=== PATIENT | male | born 1975 | race Caucasian/White ===

== ENCOUNTER → 2018-07-15 | Outpatient (CLI) | payer OTHER ==
--- NOTE | 2018-07-15 17:55 | Diagnostic Imaging Report ---
PROCEDURE: CT urinary tract, rule out kidney stone. TECHNIQUE: Multiple contiguous axial images were obtained through the abdomen and pelvis without the use of intravenous contrast. Auto Exposure Controls were utilized during the CT exam to meet ALARA standards for radiation dose reduction. INDICATION: Bilateral flank pain for four days. COMPARISON: No prior studies are available for comparison. FINDINGS: The lung bases are clear. Liver contains a tiny low-density in the inferior right lobe measuring 9 mm, too small to characterize. Gallbladder is contracted. No biliary duct dilatation is seen. The pancreas and spleen are unremarkable. No adrenal mass is identified. No definite renal calculi or hydronephrosis is seen. Aorta is non-aneurysmal. No central retroperitoneal or mesenteric lymphadenopathy is seen. Small and large bowel loops are nonobstructed. The appendix is visualized in the right lower quadrant and appears unremarkable. There is no ascites. Bladder is decompressed. There does appear to be a fat-containing left inguinal hernia. IMPRESSION: 1. No evidence of urinary tract calculi or obstruction. 2. No evidence of acute appendicitis. 3. No acute feature is detected. Dictated by: Dictated on workstation # [id number]
== END ==
LOC: RAD FS 16:08
PROVIDERS: ATTEND Family Medicine
DX: R10.9 Unspecified abdominal pain (principal)
CPT/HCPCS: 74176

== ENCOUNTER → 2018-07-30 | Outpatient (CLI) | payer OTHER ==
[~2018-07-30] MED LIST: CATHETER FLUSH 10 ML SYR IV PRN
--- NOTE | 2018-07-30 15:31 | Diagnostic Imaging Report ---
INDICATION: Abdominal pain and nausea. TECHNIQUE: Patient was administered 5.5 mCi technetium 99m Choletec intravenously and imaging over the abdomen was performed. At one hour, patient ingested one can of Ensure and gallbladder ejection fraction was calculated. FINDINGS: There is homogeneous uptake of activity by the liver. There is prompt excretion of activity into the gallbladder and common duct. Normal passage of activity into the small bowel is seen. Gallbladder ejection fraction is normal at 79%. IMPRESSION: Normal HIDA scan and gallbladder ejection fraction. Dictated by: Dictated on workstation # [id number]
== END ==
LOC: CARD 11:35
DX: R10.9 Unspecified abdominal pain (principal); R11.0 Nausea
CPT/HCPCS: 78227

== ENCOUNTER 2020-06-09 14:58 | Emergency (ER) | payer OTHER ==
[~2020-06-09] VITALS: Ht 177.8 cm; Wt 99.7 kg
[~2020-06-09 14:58] MED LIST changes: -CATHETER FLUSH 10 ML SYR IV PRN; +DEXTROSE 50% 50 ML (IMS) SYR ONE
[2020-06-09] MEDS ORDERED: ONDANSETRON 4 MG/2 ML (SDV) Z0FRAN ONE (15:17)
--- NOTE | 2020-06-09 15:18 | ED General ---
General Chief Complaint: General Problems/Pain Stated Complaint: AMS Nursing Triage Note: Patient and son report patient has been extremely fatigued, nauseous, and altered in mental status since this morning. Patient reports he remembers checking his blood sugar this morning and states it was 21. He states he called his son's school and had him sent home, son states he gave patient mountain dew to drink. Patient states he does not remember anything except checking his blood sugar today. Nursing Sepsis Screen: No Definite Risk Source of Information: Patient, EMS, Family History of Present Illness Date Seen by Provider: Jun 09, 2020 Time Seen by Provider: 15:05 Initial Comments Patient is a 79-qxbo-gre-year-old male with history of man-alhqzwz-rewurfakf diabetes who presents with altered mental status nausea fatigue and generalized weakness. Patient does not recall when symptoms began. He texted his family member who was at work at 11 AM stating that he did not feel well. Upon returning home, the family member found the patient to be confused and a blood sugar of 21. The patient had attempted to check his blood sugar multiple times by himself this morning unsuccessfully. He was given a nondiet fountain drink prior to EMS arrival. Blood sugars [address] Patient complains of mild headache, confusion, weakness and nausea. Not bite his tongue lip did not have incontinence. He denies chest pain palpitations, fever chills, and abdominal pain. He cannot recall when he last took his medications or had something to eat. History is limited due to the patient's altered mental state. Timing/Duration: 1/2 Hour Severity: Mild Modifying Factors: improves with Other Associated Systoms: Other Allergies and Home Medications Allergies Coded Allergies: No Known Drug Allergies (Unverified , 07/30/18) Patient Home Medication List Home Medication List Reviewed: Yes Review of Systems Review of Systems Constitutional: see HPI EENTM: see HPI Respiratory: see HPI Cardiovascular: see HPI Gastrointestinal: see HPI Genitourinary: see HPI Musculoskeletal: see HPI Skin: see HPI Psychiatric/Neurological: See HPI Hematologic/Lymphatic: See HPI Immunological/Allergic: see HPI All Other Systems Reviewed Negative Unless Noted: Yes Past Jofotsu-Kilpkr-Xphboh Hx Past Med/Social Hx: Reviewed Nursing Past Med/Soc Hx Patient Social History Recent Infectious Disease Expo: No Physical Exam Vital Signs Vital Signs - First Documented 06/09/20 15:07 Temp 37.5 Pulse 93 Resp 18 B/P (MAP) 121/66 (84) Pulse Ox 96 O2 Delivery Room Air Capillary Refill : Less Than 3 Seconds Height, Weight, BMI Height: '" Weight: lbs. oz. kg; 31.00 BMI Method: General Appearance: Other (Weak, confused appearing, no distress) Eyes: Bilateral Eye Normal Inspection, Bilateral Eye PERRL, Bilateral Eye EOMI HEENT: PERRL/EOMI, Normal ENT Inspection, Pharynx Normal Neck: Full Range of Motion, Non Tender, Supple Respiratory: Chest Non Tender, Lungs Clear, Normal Breath Sounds Cardiovascular: Regular Rate, Rhythm, No Edema, No Murmur Gastrointestinal: No Organomegaly, Non Tender, Soft Back: Normal Inspection Extremity: Normal Capillary Refill, Non Tender, No Calf Tenderness Neurologic/Psychiatric: Alert, No Motor/Sensory Deficits, Normal Mood/Affect, 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, Other (Oriented to person place) Skin: Cool, Pallor Focused Exam Sepsis Stage: Ruled Out Lactate Level 06/09/20 16:30: Lactic Acid Level 1.79 Lactic Acid Level Laboratory Tests Test 06/09/20 16:30 Lactic Acid Level 1.79 MMOL/L (0.50-2.00) Progress/Results/Core Measures Suspected Sepsis Recent Fever Within 48 Hours: No Infection Criteria Present: None New/Unexplained Altered Menta: Yes Sepsis Screen: No Definite Risk SIRS Temperature: Pulse: 93 Respiratory Rate: 18 Laboratory Tests 06/09/20 15:05: White Blood Count 10.7 Blood Pressure 121 /66 Mean: 84 06/09/20 16:30: Lactic Acid Level 1.79 Laboratory Tests 06/09/20 15:05: Creatinine 1.02, Platelet Count 217, Total Bilirubin 0.4 Results/Orders Lab Results Laboratory Tests Test 06/09/20 15:02 06/09/20 15:05 06/09/20 16:30 06/09/20 17:18 Range/Units Glucometer 211 H 191 H 70-110 MG/DL White Blood Count 10.7 4.3-11.0 10^3/uL Red Blood Count 5.28 4.35-5.85 10^6/uL Hemoglobin 16.6 13.3-17.7 G/DL Hematocrit 47 40-54 % Mean Corpuscular Volume 90 80-99 FL Mean Corpuscular Hemoglobin 31 25-34 PG Mean Corpuscular Hemoglobin Concent 35 32-36 G/DL Red Cell Distribution Width 13.7 10.0-14.5 % Platelet Count 217 130-400 10^3/uL Mean Platelet Volume 11.7 H 7.4-10.4 FL Immature Granulocyte % (Auto) 1 % Neutrophils (%) (Auto) 60 42-75 % Lymphocytes (%) (Auto) 28 12-44 % Monocytes (%) (Auto) 8 0-12 % Eosinophils (%) (Auto) 2 0-10 % Basophils (%) (Auto) 1 0-10 % Neutrophils # (Auto) 6.5 1.8-7.8 X 10^3 Lymphocytes # (Auto) 3.0 1.0-4.0 X 10^3 Monocytes # (Auto) 0.9 0.0-1.0 X 10^3 Eosinophils # (Auto) 0.2 0.0-0.3 10^3/uL Basophils # (Auto) 0.1 0.0-0.1 10^3/uL Immature Granulocyte # (Auto) 0.1 0.0-0.1 10^3/uL Sodium Level 138 135-145 MMOL/L Potassium Level 4.3 3.6-5.0 MMOL/L Chloride Level 103 98-107 MMOL/L Carbon Dioxide Level 23 21-32 MMOL/L Anion Gap 12 5-14 MMOL/L Blood Urea Nitrogen 15 7-18 MG/DL Creatinine 1.02 0.60-1.30 MG/DL Estimat Glomerular Filtration Rate > 60 BUN/Creatinine Ratio 15 Glucose Level 222 H 70-105 MG/DL Calcium Level 9.5 8.5-10.1 MG/DL Corrected Calcium 8.5-10.1 MG/DL Total Bilirubin 0.4 0.1-1.0 MG/DL Aspartate Amino Transf (AST/SGOT) 25 5-34 U/L Alanine Aminotransferase (ALT/SGPT) 41 0-55 U/L Alkaline Phosphatase 114 40-136 U/L Total Protein 7.2 6.4-8.2 GM/DL Albumin 4.6 H 3.2-4.5 GM/DL Serum Alcohol < 10 <10 MG/DL Urine Color YELLOW Urine Clarity CLEAR Urine pH 6.0 5-9 Urine Specific [place] 1.025 H 1.016-1.022 Urine Protein NEGATIVE NEGATIVE Urine Glucose (UA) 2+ H NEGATIVE Urine Ketones TRACE H NEGATIVE Urine Nitrite NEGATIVE NEGATIVE Urine Bilirubin NEGATIVE NEGATIVE Urine Urobilinogen 0.2 < = 1.0 MG/DL Urine Leukocyte Esterase NEGATIVE NEGATIVE Urine RBC (Auto) NEGATIVE NEGATIVE Urine RBC NONE /HPF Urine WBC RARE /HPF Urine Squamous Epithelial Cells 0-2 /HPF Urine Crystals NONE /LPF Urine Bacteria TRACE /HPF Urine Casts NONE /LPF Urine Mucus MODERATE H /LPF Urine Culture Indicated NO Lactic Acid Level 1.79 0.50-2.00 MMOL/L Urine Opiates Screen NEGATIVE NEGATIVE Urine Oxycodone Screen NEGATIVE NEGATIVE Urine Methadone Screen NEGATIVE NEGATIVE Urine Propoxyphene Screen NEGATIVE NEGATIVE Urine Barbiturates Screen NEGATIVE NEGATIVE Ur Tricyclic Antidepressants Screen NEGATIVE NEGATIVE Urine Phencyclidine Screen NEGATIVE NEGATIVE Urine Amphetamines Screen NEGATIVE NEGATIVE Urine Methamphetamines Screen NEGATIVE NEGATIVE Urine Benzodiazepines Screen POSITIVE H NEGATIVE Urine Cocaine Screen NEGATIVE NEGATIVE Urine Cannabinoids Screen NEGATIVE NEGATIVE My Orders Orders - MILAN KAY DO Cbc With Automated Diff (06/09/20 15:12) Comprehensive Metabolic Panel (06/09/20 15:12) Ekg-Prn For Chest Pain Or Rhyt (06/09/20 15:12) Chest 1 View Ap/Pa Only (06/09/20 15:12) Urinalysis (06/09/20 15:12) Drug Screen Stat (Urine) (06/09/20 15:12) Alcohol (06/09/20 15:12) Lactic Acid Analyzer (06/09/20 15:12) Ct Head Wo (06/09/20 15:12) Fsbs 50-69mg/Dl (06/09/20 15:12) Ondansetron Injection (Zofran Injectio (06/09/20 15:17) Ondansetron Injection (Zofran Injectio (06/09/20 15:30) Medications Given in ED Current Medications Medications Dose Ordered Sig/Kylah Route Start Time Stop Time Status Last Admin Dose Admin Ondansetron HCl 4 mg ONCE ONCE IVP 06/09/20 15:30 06/09/20 15:31 DC 06/09/20 15:28 4 MG Vital Signs/I&O 06/09/20 15:07 Temp 37.5 Pulse 93 Resp 18 B/P (MAP) 121/66 (84) Pulse Ox 96 O2 Delivery Room Air Capillary Refill : Less Than 3 Seconds Blood Pressure Mean: 84 Departure Communication (Admissions) EKG: Sinus rhythm, rate 85, AR interval, 149, QRS 89, QTc 438. No acute ST-T wave changes. Patient symptoms are consistent with encephalopathy related to prolonged hypoglycemic with possible POST ictal state. Mental status normalized in the emergency department. Patient returned to baseline. Patient able to eat and drink. Blood sugars remain above 180. Patient is not on insulin. Recommend watchful waiting, regular snacks and meals and close monitoring of blood sugar. Impression Primary Impression: Hypoglycemia Additional Impression: Altered mental status Disposition: 01 HOME, SELF-CARE Condition: Stable Departure-Patient Inst. Decision time for Depature: 17:27 Referrals: NIGEL PUENTES MD (PCP/Family) Primary Care Physician Patient Instructions: Low Blood Sugar in People With Diabetes Add. Discharge Instructions: Please check your blood sugars first thing in the morning and in the afternoon prior to eating for the next several days. Treat any low blood sugar episode. Eat regular meals and snacks. Continue home medications as directed. Follow-up with your PCP in 5 to 7 days for reevaluation. Return to the ED if new or worsening symptoms. All discharge instructions reviewed with patient and/or family. Voiced understanding. MILAN KAY DO Jun 09, 2020 15:18
[2020-06-09 15:24] LABS: HEMATOCRIT 47 % (40-54); HEMOGLOBIN 16.6 G/DL (13.3-17.7); MEAN CORPUSCULAR HEMOGLOBIN 31 PG (25-34); MEAN CORPUSCULAR HGB CONC 35 G/DL (32-36); MEAN CORPUSCULAR VOLUME 90 FL (80-99); MEAN PLATELET VOLUME 11.7 FL (7.4-10.4); PLATELET COUNT 217 10^3/uL (130-400); WHITE BLOOD COUNT 10.7 10^3/uL (4.3-11.0)
[2020-06-09 15:25] LABS: BASOPHILS # (AUTO) 0.1 10^3/uL (0.0-0.1); BASOPHILS % (AUTO) 1 % (0-10); EOSINOPHILS # (AUTO) 0.2 10^3/uL (0.0-0.3); EOSINOPHILS % (AUTO) 2 % (0-10); LYMPHOCYTES % (AUTO) 28 % (12-44); MONOCYTES # (AUTO) 0.9 X 10^3 (0.0-1.0); MONOCYTES % (AUTO) 8 % (0-12); NEUTROPHILS # (AUTO) 6.5 X 10^3 (1.8-7.8); NEUTROPHILS % (AUTO) 60 % (42-75)
[2020-06-09] MEDS ORDERED: ONDANSETRON 4 MG/2 ML (SDV) Z0FRAN IVP ONE (15:30)
[2020-06-09 15:40] LABS: ALANINE AMINOTRANSFERASE 41 U/L (0-55); ALBUMIN 4.6 GM/DL (3.2-4.5); ALKALINE PHOSPHATASE 114 U/L (40-136); BILIRUBIN,TOTAL 0.4 MG/DL (0.1-1.0); BUN/CREATININE RATIO 15; CALCIUM 9.5 MG/DL (8.5-10.1); CARBON DIOXIDE 23 MMOL/L (21-32); CHLORIDE 103 MMOL/L (98-107); CREATININE SERUM 1.02 MG/DL (0.60-1.30); GFR ESTIMATED > 60; GLUCOSE 222 MG/DL (70-105); POTASSIUM 4.3 MMOL/L (3.6-5.0); SODIUM 138 MMOL/L (135-145); TOTAL PROTEIN 7.2 GM/DL (6.4-8.2)
--- NOTE | 2020-06-09 15:45 | Diagnostic Imaging Report ---
INDICATION: Chest pain. COMPARISON: 06/09/2020. EXAMINATION: Single frontal view of the chest was obtained. FINDINGS: Normal heart size and pulmonary vascularity. The lungs are well aerated and clear. No large pleural effusion or pneumothorax is seen. The visualized osseous structures show no acute abnormality. IMPRESSION: No acute cardiopulmonary process. Dictated by: Dictated on workstation # [id number]
--- NOTE | 2020-06-09 15:59 | Diagnostic Imaging Report ---
INDICATION: Headache, fatigue and dizziness. TECHNIQUE: Multiple contiguous axial images were obtained through the brain without the use of intravenous contrast. Auto Exposure Controls were utilized during the CT exam to meet ALARA standards for radiation dose reduction. COMPARISON: There is no prior head CT for comparison. FINDINGS: There is no extra-axial fluid collection. No intracranial hemorrhage. No intracranial mass or mass effect. No midline shift. The ventricles are normal in size and position. There is no focal parenchymal abnormality in the brain. Calvarial windows appear unremarkable. Visualized portions of the sinuses are clear. Orbital contents are unremarkable. IMPRESSION: Negative noncontrast brain CT. Dictated by: Dictated on workstation # [id number]
[2020-06-09 16:45] LABS: BACTERIA,URINE TRACE /HPF; BILIRUBIN,URINE NEGATIVE (NEGATIVE); CLARITY,URINE CLEAR; COLOR,URINE YELLOW; GLUCOSE, URINE (UA) 2+ (NEGATIVE); KETONES,URINE TRACE (NEGATIVE); LEUKOCYTE ESTERASE ,URINE NEGATIVE (NEGATIVE); NITRITE,URINE NEGATIVE (NEGATIVE); PROTEIN,URINE NEGATIVE (NEGATIVE); SQUAMOUS EPITHELIAL CELL,UR 0-2 /HPF; WBC,URINE RARE /HPF
[2020-06-09 16:49] LABS: BENZODIAZEPINES SCREEN URINE POSITIVE (NEGATIVE)
[2020-06-09 16:50] LABS: AMPHETAMINE SCREEN, URINE NEGATIVE (NEGATIVE); BARBITURATE SCREEN URINE NEGATIVE (NEGATIVE); CANNABINOID SCREEN, URINE NEGATIVE (NEGATIVE); COCAINE SCREEN URINE NEGATIVE (NEGATIVE); METHADONE STAT NEGATIVE (NEGATIVE); METHAMPHETAMINE SCREEN URINE S NEGATIVE (NEGATIVE); OPIATE SCREEN URINE NEGATIVE (NEGATIVE); OXYCODONE STAT NEGATIVE (NEGATIVE); PROPOXYPHENE STAT NEGATIVE (NEGATIVE); TRICYCLIC ANTIDEPRESSANTS SCRE NEGATIVE (NEGATIVE)
[2020-06-09 17:40] VITALS: BP 113/66
== END 2020-06-09 17:45 | disposition home or self-care (01) ==
LOC: EDUNIT# 14:58 → ER FS 15:01
DX: E11.649 Type 2 diabetes mellitus with hypoglycemia without coma (principal); R41.82 Altered mental status, unspecified
CPT/HCPCS: 36415; 70450; 71045; 80053; 80306; 81000; 82962; 83605; 85025; 99284; G0480; 80320

== ENCOUNTER → 2020-10-10 | Outpatient (CLI) | payer OTHER ==
--- NOTE | 2020-10-10 10:27 | Diagnostic Imaging Report ---
PROCEDURE: MR imaging of the brain without contrast. TECHNIQUE: Multiplanar, multisequence MR imaging of the brain was performed without contrast. INDICATION: Left-sided tingling and numbness. Dizziness. COMPARISON: 06/09/2020. FINDINGS: No acute ischemia, mass, or hemorrhage. The ventricles, cortical sulci, and basilar cisterns are symmetric and unremarkable. The sellar and suprasellar regions have a normal appearance. The brainstem and posterior fossa are unremarkable. The paranasal sinuses and mastoid air cells demonstrate normal signal characteristics. The globes and orbits are symmetric and unremarkable. The scalp and calvarium have a normal appearance. IMPRESSION: 1. No acute ischemia, mass, or hemorrhage. Dictated by: Dictated on workstation # [id number]
== END ==
LOC: RAD 09:30
PROVIDERS: ATTEND Nurse Practitioner Adult Health
DX: R20.2 Paresthesia of skin (principal); R42 Dizziness and giddiness; R20.0 Anesthesia of skin
CPT/HCPCS: 70551